=== PATIENT | male | born 1930 | race Caucasian/White ===

== ENCOUNTER 2017-03-20 11:42 | Outpatient (CLI) | payer MEDICARE, OTHER ==
--- NOTE | 2017-03-20 19:01 | Diagnostic Imaging Report ---
AMA VERA [facility] [address] [facility] [address] [address] Report Submission Date: Mar 20, 2017 3:47:22 PM CDT Patient Study Name: EEMLIA DELANEY Date: Mar 20, 2017 11:47:42 AM CDT Modality Type: CR Gender: M Description: SPINE : [birth year] Institution: [facility] Physician: AMA VERA Examination: Cervical spine History: Discomfort Comparison exams: None available Findings: 4 views of the cervical spine demonstrate normal height and alignment. No anterior compression. No abnormal listhesis. No odontoid abnormality. Extensive lower cervical osteophyte formation and disc space narrowing. No prevertebral abnormality Impression: Extensive lower cervical degenerative changes. If patient is experiencing neurologic symptoms, consider obtaining MRI. Electronically signed on Mar 20, 2017 3:47:22 PM CDT by: Jitendra GONSALES
== END 2017-03-20 11:43 ==
LOC: RAD 11:42
PROVIDERS: ATTEND Family Medicine
DX: M50.30 Other cervical disc degeneration, unspecified cervical region (principal)
CPT/HCPCS: 72040

== ENCOUNTER 2017-04-24 12:37 | Outpatient (CLI) | payer MEDICARE, OTHER | END 2017-04-24 12:40 | LOC: CARD 12:37 | PROVIDERS: ATTEND Nurse Practitioner | DX: I25.10 Atherosclerotic heart disease of native coronary artery without angina pectoris (principal); I10 Essential (primary) hypertension; R06.02 Shortness of breath | CPT/HCPCS: G0463 ==

== ENCOUNTER 2017-07-14 13:22 | Outpatient (CLI) | payer MEDICARE, OTHER | END 2017-07-14 13:23 | LOC: POD 13:22 | PROVIDERS: ATTEND Podiatrist | DX: B35.1 Tinea unguium (principal); M79.674 Pain in right toe(s); M79.675 Pain in left toe(s); E11.42 Type 2 diabetes mellitus with diabetic polyneuropathy | CPT/HCPCS: 11721; G0463 ==

== ENCOUNTER 2017-09-19 15:35 | Emergency (ER) | payer MEDICARE, OTHER ==
--- NOTE | 2017-09-19 15:37 | ED Physician Documentation ---
General Adult - HISTORIAN Historian: patient - HPI Stated Complaint: fatigue cough fever Chief Complaint: Cough/ Upper Respiratory Onset: other (over all 2 weeks ago ) Timing: still present Severity: mild Further Comments: yes (States two weeks ago he fell and he was noted to have some weakness at this time. He felt this did improve although over the last 24 hours he has had increased fatigue and weakness. He is not sure if he has had a fever in last 24 hours but does note a fever when all this started. He states he has an aid that comes from a long term but does not feel he has had any sick contacts. He has not had any OTC meds. He states he cannot stay at home like this . Has had a cough for two weeks. Makes his throat hurt to cough) - ROS CONST: fever, recent illness, weakness EYES/ENT: sore throat CVS/RESP: cough. denies: chest pain, shortness of breath GI/: denies: abdominal pain, vomiting, nausea, diarrhea MS/SKIN/LYMPH: denies: leg swelling, rash - PAST HX Past History: other (hypothyroidism, DM, Hyperlipidemia) Surgeries/Procedures: other Immunizations: UTD Allergies/Adverse Reactions: Allergies Allergy/AdvReac Type Severity Reaction Status Date / Time No Known Drug Allergies Allergy Verified 09/19/17 16:21 Home Medications: Ambulatory Orders Medication Instructions Recorded Isosorbide Mononitrate [Isosorbide 60 mg PO DAILY u2 03/17/16 Mononitrate Er] - SOCIAL HX Smoking History: non-smoker Alcohol Use: none Drug Use: none - FAMILY HX Family History: No - REVIEWED ASSESSMENTS Nursing Assessment Reviewed: Yes Vitals Reviewed: Yes Progress - Progress Progress: 1608: Discussed discharge and during discussion he states he is coughing up blood and does produce blood sputum on tissue. DG ED Results Lab/Radiology - Radiology Radiology Impressions: Examination: PA and lateral chest. History: Evaluate lung stone. Comparison exam: None provided. Findings: PA lateral chest demonstrate a normal cardiac and mediastinal silhouette. Chronic appearing ossific changes. Mild parenchymal haziness at the bases bilaterally. No blunting of the costophrenic margins. Flattening of the diaphragms on lateral view. Osseous structures are appropriate for age. Impression: Emphysematous changes with likely mild basilar infiltrates. No effusion. Electronically signed on Sep 19, 2017 4:38:35 PM HOUSING ASSISTANT PROPERTY MANAGER by: Jitendra Elias General Adult Physical Exam - PHYSICAL EXAM GENERAL APPEARANCE: no distress EENT: eye inspection normal NECK: normal inspection RESPIRATORY: no resp distress, wheezes CVS: reg rate & rhythm, heart sounds normal, equal pulses, no murmur ABDOMEN: soft, normal bowel sounds, non-tender BACK: normal inspection SKIN: warm/dry, normal color EXTREMITIES: non-tender, no evidence of injury, no edema NEURO: oriented X3, CN's nml as tested, motor nml, sensation nml Discharge Clincal Impression: Pneumonia Qualifiers: Pneumonia type: due to unspecified organism Laterality: unspecified laterality Lung location: lower lobe of lung Qualified Code(s): J18.1 - Lobar pneumonia, unspecified organism Referrals: Jostin Anderson MD [Primary Care Provider] - 2 Days Comments: azithromycin as ordered Increase fluids Rest See PCP Thursday or Thursday Return for any concerns Condition: Stable Disposition: 01 HOME, SELF-CARE Decision to Admit: NO Date of Decison to Admit: 09/19/17 Decision Time: 17:26
[2017-09-19 16:27] LABS: BASOPHILS % 1.3 (0.0-1.5); EOSINOPHILS % 0.2 % (0.0-6.8); MEAN CORPUSCULAR HEMOGLOBIN 32.8 pg (28.0-34.0); MEAN CORPUSCULAR VOLUME 92.5 fl (80.0-100.0); MONOCYTES % 8.5 % (0.0-11.0); NEUTROPHILS # 4.9 # k/uL (1.4-7.7)
[2017-09-19 16:44] LABS: eGFR (African) > 60; eGFR (Non-African) > 60
[2017-09-19 17:52] VITALS: BP 144/63
--- NOTE | 2017-09-19 18:01 | Diagnostic Imaging Report ---
FRANCISCO SAENZ [facility] [address] [facility] [address] [place], [place]. [address] Report Submission Date: Sep 19, 2017 4:38:35 PM RECEIVING CLERK Patient Study Name: EMELIA DELANEY Date: Sep 19, 2017 4:18:41 PM RECEIVING CLERK Modality Type: CR Gender: M Description: CHEST : [birth year] Institution: [facility] Physician: FRANCISCO SAENZ Examination: PA and lateral chest. History: Evaluate lung stone. Comparison exam: None provided. Findings: PA lateral chest demonstrate a normal cardiac and mediastinal silhouette. Chronic appearing ossific changes. Mild parenchymal haziness at the bases bilaterally. No blunting of the costophrenic margins. Flattening of the diaphragms on lateral view. Osseous structures are appropriate for age. Impression: Emphysematous changes with likely mild basilar infiltrates. No effusion. Electronically signed on Sep 19, 2017 4:38:35 PM RECEIVING CLERK by: Jitendra GONSALES
== END 2017-09-19 17:48 | disposition home or self-care (01) ==
LOC: ED 15:35
DX: J18.1 Lobar pneumonia, unspecified organism (principal)
CPT/HCPCS: 71020; 80053; 85025; 87400; 99283

== ENCOUNTER 2017-11-10 15:13 | Outpatient (CLI) | payer MEDICARE, OTHER | END 2017-11-10 15:14 | LOC: POD 15:13 | PROVIDERS: ATTEND Podiatrist | DX: B35.1 Tinea unguium (principal); M79.674 Pain in right toe(s); M79.675 Pain in left toe(s) | CPT/HCPCS: 11721; G0463 ==

== ENCOUNTER 2018-02-09 13:22 | Outpatient (CLI) | payer MEDICARE, OTHER | END 2018-02-09 13:23 | LOC: POD 13:22 | PROVIDERS: ATTEND Podiatrist | DX: B35.1 Tinea unguium (principal); M79.674 Pain in right toe(s); M79.675 Pain in left toe(s) | CPT/HCPCS: 11721; G0463 ==